=== PATIENT | female | born 1995 | race Caucasian/White ===

== ENCOUNTER 2020-05-26 20:44 | Emergency (ER) | payer OTHER, SELFPAY ==
[2020-05-26 20:45] VITALS: BP 119/70; PULSE 99; RESP 18; TEMP 36.5; O2SAT 97
--- NOTE | 2020-05-26 20:59 | ED.EPISTAXIS ---
HPI - Epistaxis General Chief complaint: Epistaxis Stated complaint: epistaxis Time Seen by Provider: 05/26/20 20:52 Source: patient Mode of arrival: ambulatory Limitations: no limitations History of Present Illness HPI Narrative: This is a 24 year old female that presents to the ER for left sided epistaxis that started about 15 minutes prior to arrival. Reports the bleeding became controlled as they pulled into the ED. Reports she is 27 weeks . Her OB is in [place], [place]. She was worried she had lost a lot of blood. Denies nasal trauma. Related Data Home Medications Medication Instructions Recorded Confirmed 05/26/20 Allergies Allergy/AdvReac Type Severity Reaction Status Date / Time No Known Allergies Allergy Verified 05/26/20 21:01 Review of Systems Review of Systems: Narrative: CONSTITUTIONAL: Denies fever ENT: Reports epistaxis All systems reviewed & are unremarkable except as noted in HPI and below PMFSH Past Medical History Medical History (Updated 05/26/20 @ 22:32 by Nadia Magana PA-C) No active medical problems Social History Social History (Updated 05/26/20 @ 21:02 by Nadia Magana PA-C) Smoking status: Never smoker Exam Narrative: Exam Narrative: GENERAL: Well-appearing, well-nourished, and in no acute distress. HEAD: Normocephalic, atraumatic. EYES: EOMI. ENT: No active epistaxis. Left nare with mucosal irritation and dried blood. Mucous membranes moist. Oropharynx without tonsillar hypertrophy exudate or other lesions. NECK: Supple. No adenopathy or masses. EXTREMITIES: Normal range of motion. No edema. SKIN: Warm, dry, no rash. NEURO: No focal deficits. Alert and oriented x3. PSYCH: Normal mood and affect Course Vital Signs Vital signs: Vital Signs Temperature 97.7 F 05/26/20 20:45 Pulse Rate 99 05/26/20 20:45 Respiratory Rate 18 05/26/20 20:45 Blood Pressure 119/70 05/26/20 20:45 Pulse Oximetry 97 05/26/20 20:45 Temperature 97.7 F 05/26/20 20:45 Pulse Rate 99 05/26/20 20:45 Respiratory Rate 18 05/26/20 20:45 Blood Pressure 119/70 05/26/20 20:45 Pulse Oximetry 97 05/26/20 20:45 Procedures Other Procedure Procedure 1: Other Procedure: Bedside ultrasound performed, good movement with heart rate of 133 MDM - Epistaxis MDM Narrative Medical decision making narrative: Patient presents to the emergency department for a nosebleed today. Had stopped on arrival to the ED. I did place a cotton swab with Afrin in the nare to ensure continued hemostasis. No further bleeding while in the ED. Patient was instructed on care of nosebleeds. She is to follow-up with her OB. She was given warnings to return to the ER Critical Care Time Critical Care Time Critical Care Time: No Discharge Plan Discharge Clinical Impression: Epistaxis Patient Disposition: Home, Self-Care Condition: Stable Instructions: Nosebleed (ED) Prescriptions: No Action RF: 0 Follow-up/Referrals: PHYSICIAN,CIRCUIT COURT JUDGE [Primary Care Provider] - Sanaz Bautista MD [Physician] - 1 Week
[2020-05-26 22:05] LABS: Basophils Percent Auto 0.3 % (0.2-1.2); Eosinophils Absolute Auto 0.1 K/mm3 (0-0.3); Eosinophils Percent Auto 0.8 % (0-4.4); Hematocrit 32.7 % (37.0-47.0); Hemoglobin 10.9 g/dL (12.0-15.0); Immature Granulocyte Absolute 0.04 K/mm3 (0.00-0.031); Immature Granulocyte Percent A 0.3 % (0-0.5); Lymphocytes Absolute Auto 1.46 K/mm3 (0.9-3.2); Lymphocytes Percent Auto 11.3 % (18.3-44.2); Mean Corpuscular HGB Conc 33.3 g/dl (32-36); Mean Corpuscular Hemoglobin 30.9 pg (26-34); Mean Corpuscular Volume 92.6 fl (80-100); Mean Platelet Volume 9.6 fl (7.4-10.4); Monocytes Percent Auto 7.7 % (2.6-8.5); Neutrophils Absolute Auto 10.3 K/mm3 (1.3-6.7); Neutrophils Percent Auto 79.6 % (45.5-73.1); Platelet Count Result 290 k/mm3 (150-375); Red Blood Count 3.53 M/mm3 (4.2-5.4); Red Cell Distribution Width 12.8 % (11.5-14.5); White Blood Count 12.9 K/mm3 (4.5-10.0)
[2020-05-26 22:13] LABS: INR 0.9; Prothrombin Time 12.8 Seconds (11.1-14.7)
[2020-05-26 22:14] LABS: Partial Thromboplastin Time 27.6 SECONDS (22.3-36.8)
[2020-05-26 22:46] VITALS: BP 105/71; PULSE 79; RESP 16; TEMP 36.8; O2SAT 100
== END 2020-05-26 22:47 | disposition home or self-care (01) ==
PROVIDERS: Physician Assistant; Emergency Provider Emergency Medicine
DX: O26.892 Other specified pregnancy related conditions, second trimester (principal); R04.0 Epistaxis; Z3A.27 27 weeks gestation of pregnancy
CPT/HCPCS: 36415; 85025; 85610; 85730; 99283

== ENCOUNTER 2025-05-07 19:32 | Emergency (ER) | payer OTHER, SELFPAY ==
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
[2025-05-07 19:36] VITALS: BP 125/84; PULSE 107; RESP 20; TEMP 36.8; O2SAT 99
[2025-05-07 19:55] LABS: BEDSIDEPREGUCG Negative (Negative)
[2025-05-07 19:59] LABS: Hematocrit 40.1 % (37.0-47.0); Hemoglobin 13.1 g/dL (12.0-15.0); Immature Granulocyte Percent A 0.2 % (0-0.5); Lymphocytes Absolute Auto 0.98 K/mm3 (0.9-3.2); Mean Corpuscular HGB Conc 32.7 g/dl (32-36); Mean Corpuscular Hemoglobin 29.3 pg (26-34); Mean Corpuscular Volume 89.7 fl (80-100); Nucleated Red Blood Cells Absolute Auto 0.000 K/mm3 (0.0-0.012); Nucleated Red Blood Cells Perc 0.0 % (0.0-0.2); Platelet Count Result 259 k/mm3 (150-375); Red Blood Count 4.47 M/mm3 (4.2-5.4); White Blood Count 6.6 K/mm3 (4.5-10.0)
[2025-05-07 20:00] LABS: Add Urine Microscopic? YES; Appearance Urine Cloudy (Clear); Glucose Urine UA Negative (Negative); Leukocyte Esterase Ur 1+ LEU/UL (Negative); Nitrate Urine Positive (Negative); Non Pathogenic Casts 0-2; Specific Grav Ur 1.026 (1.001-1.035)
--- NOTE | 2025-05-07 20:11 | ED_ITS ---
HPI - Psych General Chief Complaint: Psychiatric Symptoms Stated Complaint: SI Time Seen by Provider: 05/07/25 19:51 History of Present Illness HPI Narrative: Patient has been feeling very depressed, she has multiple issues to stressing her out including family, her marriage is falling apart. She is feeling like the world be better off without her, though she has no plan to kill herself or hurt herself. Related Data Home Medications ?Medication ?Instructions ?Recorded ?Confirmed ?Last Taken ?Type 05/26/20 Unknown History Allergies Allergy/AdvReac Type Severity Reaction Status Date / Time No Known Allergies Allergy Verified 05/26/20 21:01 Review of Systems 2 Review of Systems: All systems reviewed & are unremarkable except as noted in HPI and below PMFSH Past Medical History Medical History (Updated 05/07/25 @ 20:51 by Bobbi Dodd MD) No active medical problems Social History Social History (Updated 05/26/20 @ 21:02 by Nadia Magana PA-C) Smoking status: Never smoker Exam 2 Narrative: EXAMINATION OF ORGAN SYSTEMS/BODY AREAS: Constitutional: Vital signs per nursing GENERAL: Quite tearful HEAD: Normal with no signs of head trauma. EYES: EOMI, conjunctiva normal ENT: Hearing grossly intact LUNGS: Nonlabored breathing. HEART: Slightly tachycardic ABD: Nondistended EXT: Normal range of motion SKIN: [No rashes or lesions.] NEURO: [Alert and oriented x 3. No gross focal sensory or strength deficits.] Speak with clear speech ambulating with normal steady gait PSYCH: Tearful affect Course Vital Signs Vital signs: Vital Signs Temperature 98.2 F 05/07/25 19:36 Pulse Rate 107 H 05/07/25 19:36 Respiratory Rate 20 05/07/25 19:36 Blood Pressure 125/84 05/07/25 19:36 Pulse Oximetry 99 05/07/25 19:36 Oxygen Delivery Room Air 05/07/25 19:36 Temperature 98.2 F 05/07/25 19:36 Pulse Rate 107 H 05/07/25 19:36 Respiratory Rate 20 05/07/25 19:36 Blood Pressure 125/84 05/07/25 19:36 Pulse Oximetry 99 05/07/25 19:36 Oxygen Delivery Room Air 05/07/25 19:36 MDM - Psych MDM Narrative Medical decision making narrative: ED COURSE AND MEDICAL DECISION MAKINF here for psychiatric evaluation. Patient with history of depression, not on any medications currently as she stopped it when she was . No focal neurological deficits on exam. Psych labs are ordered and essentially unremarkable other than a UTI, she does state that she has some slight symptoms so I will start her on antibiotics. Psychiatric team is consulted and the patient is medically cleared for psych evaluation and disposition. Lab Data 05/07/25 19:48 05/07/25 19:48 Labs: Lab Results 05/07/25 05/07/25 Range/Units 19:41 19:48 WBC 6.6 (4.5-10.0) K/mm3 RBC 4.47 (4.2-5.4) M/mm3 Hgb 13.1 (12.0-15.0) g/dL Hct 40.1 (37.0-47.0) % MCV 89.7 (80-100) fl MCH 29.3 (26-34) pg MCHC 32.7 (32-36) g/dl RDW 12.7 (11.5-14.5) % Plt Count 259 (150-375) k/mm3 MPV 10.2 (7.4-10.4) fl Immature Gran % (Auto) 0.2 (0-0.5) % Neut % (Auto) 78.5 H (45.5-73.1) % Lymph % (Auto) 14.9 L (18.3-44.2) % [place] % (Auto) 5.6 (2.6-8.5) % Eos % (Auto) 0.2 (0-4.4) % Baso % (Auto) 0.6 (0.2-1.2) % Lymph # (Auto) 0.98 (0.9-3.2) K/mm3 [place] # (Auto) 0.4 (0.1-0.6) K/mm3 Eos # (Auto) 0.0 (0-0.3) K/mm3 Baso # (Auto) 0.0 (0.0-0.1) K/mm3 Abs Immat Gran (auto) 0.01 (0.00-0.031) K/mm3 Absolute Neuts (auto) 5.2 (1.3-6.7) K/mm3 Absolute Nucleated RBC 0.000 (0.0-0.012) K/mm3 Nucleated RBC % 0.0 (0.0-0.2) % Sodium Pending Potassium Pending Chloride Pending Carbon Dioxide Pending Anion Gap Pending BUN Pending Creatinine Pending Estim Creat Clear Calc Pending Estimated GFR Pending Glucose Pending Calcium Pending Total Bilirubin Pending AST Pending ALT Pending Alkaline Phosphatase Pending Total Protein Pending Albumin Pending TSH (Reflex) Pending Urine Color Dark yellow (Yellow) Urine Appearance Cloudy H (Clear) Urine pH 6.5 (5.0-9.0) Ur Specific [place] 1.026 (1.001-1.035) Urine Protein 1+ H (Negative) mg/dL Urine Glucose (UA) Negative (Negative) mg/dL Urine Ketones 1+ H (Negative) mg/dL Ur Blood (Man) 3+ H (Negative) Urine Nitrate Positive H (Negative) Urine Bilirubin Negative (Negative) Urine Urobilinogen 1.0 (<2.0) mg/dL Leukocyte Esterase Rfl 1+ H (Negative) ZEFERINO/UL Urine RBC 0-2 (0-2) /hpf Urine WBC 6-10 H (0-3) /hpf Ur Squamous Epith Cells Moderate (Few) /hpf Urine Bacteria 4+ H /hpf Urine Casts 0-2 POC Urine HCG, Qual Negative (Negative) Urine Opiates Screen Pending Urine Methadone Screen Pending Ur Barbiturates Screen Pending Ur Phencyclidine Scrn Pending Ur Amphetamine Screen Pending U Benzodiazepines Scrn Pending Urine Cocaine Screen Pending U Cannabinoids Screen Pending Ethyl Alcohol Pending Influenza A (RT-PCR) Pending Influenza B (RT-PCR) Pending RSV (RT-PCR) Pending SARS-CoV-2 RNA (RT-PCR) Pending Discharge Plan Discharge Clinical Impression: Depressed Patient Disposition: Home Condition: Stable Instructions: Antibiotic Form, Urinary Tract Infection in Women (ED), Depression (ED) Additional Instructions: Please follow up with your doctor and mental health services; take the antibiotics as prescribed. You can always return for any further issues. Patient Language: Upper Sorbian Prescriptions: New nitrofurantoin monohyd/m-cryst [Macrobid] 100 mg capsule 100 mg PO Q12H 7 Days Qty: 14 0RF Rx Instructions: must administer with a meal/food No Action Follow-up/Referrals: PHYSICIAN,ADMINISTRATIVE ACCOUNTANT [Primary Care Provider, Internal Medicine]
[2025-05-07 20:12] LABS: Alanine Aminotransferase 21 U/L (6-35); Albumin Level 4.9 g/dL (3.5-5.1); Alkaline Phosphatase 51 U/L (38-126); Anion Gap 7 mmol/L (4-12); Aspartate Amino Transferase 39 U/L (14-36); Bilirubin,Total 0.9 mg/dL (0.2-1.3); Blood Urea Nitrogen 12 mg/dL (7-17); Calcium 9.6 mg/dL (8.4-10.2); Carbon Dioxide 25 mmol/L (22-30); Chloride 108 mmol/L (98-107); Estimated CRCL calculation 77 ml/min; Estimated Glomerular Filt Rate > 60; Glucose 113 mg/dL (65-110); Potassium 3.6 mmol/L (3.4-5.0); Sodium 140 mmol/L (137-145); Total Protein 8.1 g/dL (6.3-8.2)
[2025-05-07 20:17] LABS: Cannabinoid Screen Urine Negative (Negative)
--- NOTE | 2025-05-07 20:30 | PC.NURSE ---
Ok per Dr Dodd for no sitter at this time on this moderate risk patient.
[2025-05-07 20:33] LABS: Influenza A QL RT-PCR Negative (Negative); Influenza B QL RT-PCR Negative (Negative); RSV RNA, RT-PCR Negative (Negative); SARS-CoV-2 RNA PCR Negative (Negative)
[2025-05-07 20:44] LABS: Thyroid Stimulating Hormone Reflex 0.558 uIU/mL (0.465-4.68)
[2025-05-07] MEDS: NITROFURANTOIN MONOHYD MACROCR 100 MG CAP PO (21:12)
== END 2025-05-07 22:07 | disposition home or self-care (01) ==
PROVIDERS: Student in an Organized Health Care Education/Training Program; Emergency Provider Emergency Medicine
DX: F32.A Depression, unspecified (principal); N39.0 Urinary tract infection, site not specified; Z11.52 Encounter for screening for COVID-19
CPT/HCPCS: 36415; 80053; 80307; 81001; 81025; 82077; 84443; 85025; 87637; 99283; A9270